=== PATIENT | male | born 1990 | race Caucasian/White ===

== ENCOUNTER 2017-02-21 14:15 | Observation (INO) | payer MEDICAID ==
[2017-02-21] MEDS ORDERED: HYDROmorphone 1 MG/ML Syringe ONE (14:23)
[2017-02-21] MEDS ORDERED: HYDROmorphone 1 MG/ML Syringe IVPUSH ONE ×4 (14:42→19:13)
[2017-02-21] MEDS ORDERED: Lactated Ringers 1,000 ML IV ONE (14:43)
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
[2017-02-21] MEDS ORDERED: fentaNYL 100 MCG/2 ML SDV IVPUSH ONE (16:35)
[2017-02-21] MEDS ORDERED: Cyclobenzaprine 10 MG Tab PO ONE (17:16)
[2017-02-21] MEDS ORDERED: Naloxone 0.4 MG/ML SDV IVPUSH PRN (19:34)
[2017-02-21] MEDS ORDERED: LORazepam 2 MG/ML MDV IV PRN (19:34)
[2017-02-21] MEDS ORDERED: Albuterol 0.083% 2.5 MG/3 ML Neb Soln NEB PRN (19:34)
[2017-02-21] MEDS ORDERED: HYDROmorphone/Normal Saline 15 MG/30 ML PCA IV PRN (19:34)
[2017-02-21] MEDS ORDERED: Ondansetron 4 MG Tab.DIS PO PRN (19:34)
[2017-02-21] MEDS: Nicotine 21 MG/24 Hr Patch TRDERM SCH (19:57)
[2017-02-21] MEDS: Sodium Chloride 0.9% 1,000 ML IV SCH (19:58)
[2017-02-21] MEDS ORDERED: Zolpidem 5 MG Tab PO SCH (21:00)
--- NOTE | 2017-02-21 22:04 | PCM.SN ---
- Free Text/Narrative Note: 02/21/2017 time 2102 concerns of muscle spasms a; complex fracture of left humerus p; Valium 5mg IVP every 6 hours as needed for muscle spasm.
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
[2017-02-21] MEDS: Docusate Sodium 100 MG Cap PO SCH (22:37)
[2017-02-21] MEDS ORDERED: Zolpidem 5 MG Tab PO PRN (22:38)
[2017-02-22] MEDS: Sodium Chloride 0.9% 1,000 ML IV SCH (03:54)
--- NOTE | 2017-02-22 07:10 | CR ---
Chest 1V Frontal INDICATION: PAIN COMPARISON: None FINDINGS: Single view of the chest obtained shows normal heart size. No infiltrate or pleural effu blaine. No signs of pulmonary edema. No pneumothorax. IMPRESSION: Negative single view of the chest.
--- NOTE | 2017-02-22 07:10 | CR ---
Humerus Lt INDICATION: PAIN COMPARISON: None FINDINGS: Single view of the humerus shows a comminuted fracture of the mid to distal shaft with mil d medial angulation of the major distal fracture fragment and significant medial displacement of min or fracture fragments. There is also a nondisplaced transverse fracture of the proximal humeral shaf t. Shoulder appears intact. Standard views of the shoulder and elbow advised.
[2017-02-22] MEDS ORDERED: Pantoprazole 40 MG Tab.CR PO SCH ×2 (07:30→09:00)
[2017-02-22] MEDS: Nicotine 21 MG/24 Hr Patch TRDERM SCH (08:14)
[2017-02-22] MEDS: Docusate Sodium 100 MG Cap PO SCH (08:15)
--- NOTE | 2017-02-22 08:54 | CR ---
Fingers Thumb Lt FA INDICATION: pain with flexion. COMPARISON: None FINDINGS: Single view of the thumb. No acute fracture. Probable old fracture fragment at the first MCP joint. IMPRESSION: Negative study, though if symptoms persist, recommend standard 3 view study of the thumb .
[2017-02-22] MEDS ORDERED: Citalopram 20 MG Tab PO SCH (09:00)
[2017-02-22] MEDS ORDERED: oxyCODONE 5 MG Tab PO PRN (09:20)
[2017-02-22] MEDS ORDERED: Acetaminophen 325 MG Tab PO PRN (10:28)
[2017-02-22 11:20] VITALS: BP 141/80
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
== END 2017-02-22 14:15 | disposition home or self-care (01) ==
LOC: JP.ED 14:15 → JP.MS 18:57
PROVIDERS: ADMIT Internal Medicine; ATTEND Internal Medicine
DX: S42.352A Displaced comminuted fracture of shaft of humerus, left arm, initial encounter for closed fracture (principal); F32.9 Major depressive disorder, single episode, unspecified; F90.9 Attention-deficit hyperactivity disorder, unspecified type; V86.59XA Driver of other special all-terrain or other off-road motor vehicle injured in nontraffic accident, initial encounter; Z79.899 Other long term (current) drug therapy; F17.210 Nicotine dependence, cigarettes, uncomplicated
CPT/HCPCS: 36415; 71010; 73060; 73140; 80048; 80053; 81001; 85025; 96361; 96374; 96375; 97165; 99284; A9270; G0378; G0480; J1170; J3010; J3360; J7040; J7120; 96376